=== PATIENT | female | born 1990 | race Caucasian/White ===

== ENCOUNTER 2016-11-12 19:46 | Emergency (ER) | payer MEDICAID ==
[~2016-11-12] VITALS: Ht 154.9 cm; Wt 57.0 kg
[2016-11-12] MEDS ORDERED: FLUORESCEIN SODIUM 1MG/STRIP RIGHTEYE ONE (21:30)
[2016-11-12] MEDS ORDERED: TETRACAINE 0.5% OPHTH DROPS 4ML RIGHTEYE ONE (21:30)
[2016-11-12 22:50] VITALS: BP 129/74
== END 2016-11-12 23:50 | disposition home or self-care (01) ==
LOC: ER 22:29
DX: H10.219 Acute toxic conjunctivitis, unspecified eye (principal)
CPT/HCPCS: 99283